=== PATIENT | female | born 1965 | race Caucasian/White ===

== ENCOUNTER → 2021-05-04 14:05 | Outpatient (CLI) | payer OTHER, SELFPAY ==
[2021-05-04 17:37] LABS: Absolute Lymphocyte Count 1.59 X10^3/uL (0.83-4.51); Absolute Neutrophil Count 6.5 X10^3/uL (2.0-7.7); Basophil# 0.09 X10^3/uL; Eosinophil# 0.16 X10^3/uL; Eosinophils% 1.8 % (0-5); Hematocrit 42.6 % (37-47); Hemoglobin 14.2 g/dL (12.0-15.0); Lymphocyte # 1.59 X10^3/ul (0.83-4.51); Lymphocyte % 17.5 % (19-41); Mean Corp Hgb Conc 33.3 g/dL (32-36); Mean Corpuscular Hgb 30.3 pg (27.0-32.0); Mean Corpuscular Volume 90.8 fL (81-99); Mean Platelet Vol. 10.6 fl (6.2-12.0); Monocyte# 0.77 X10^3/uL; Monocyte% 8.5 % (0-10); NRBC Flagged by Analyzer 0 % (0-5); Neutrophil # 6.45 X10^3/uL (2.7-7.7); Neutrophil % 70.8 % (47-70); Platelet Count 293 K/mm3 (150-450); RBC Distribution Width CV 12.4 % (11.6-14.6); RBC Distribution Width SD 41.1 fl (35.1-43.9); Red Blood Count 4.69 M/mm3 (4.2-5.4); White Blood Count 9.1 K/mm3 (4.4-11.0)
[2021-05-04 17:49] LABS: Erythrocyte Sedimentation Rate 70 mm/hr (0-30)
[2021-05-04 17:57] LABS: ALB/GLOB Ratio 0.6 RATIO (0.9-2.4); AST(SGOT) 16 U/L (15-37); Alanine Aminotransfer ALT/SGPT 23 U/L (13-56); Albumin, Serum 3.4 g/dL (3.2-5.0); Alkaline Phosphatase 121 U/L (45-117); Anion Gap 11 (5-15); BUN 22 mg/dL (7-18); BUN/Creat Ratio 21.2 RATIO (10-20); Calcium,Total 9.7 mg/dL (8.5-10.1); Chloride 106 mmol/L (98-107); Creatinine, Serum 1.04 mg/dL (0.55-1.02); EST Glomerular Filtration Rate 59 mL/min (>60); Est Glom Filt Rate - Afr Amer 71 mL/min (>60); Globulin 5.3 g/dL (2.2-4.2); Glucose 104 mg/dL (74-106); Potassium 3.9 mmol/L (3.5-5.1); Protein, Total 8.7 g/dL (6.4-8.2); Rheumatoid Factor < 10.0 IU/mL (<15); Sodium Level 137 mmol/L (136-145)
[2021-05-05 09:19] LABS: Hepatitis B Surface Antibody Reactive; Hepatitis B Surface Antigen Non-Reactive (Nonreactive); Hepatitis C Antibody Non-Reactive (Nonreactive)
[2021-05-07 09:15] LABS: CCP IgG Antibodies 4 units (0-19)
[2021-05-07 09:44] LABS: ANTINUCLEAR ANTIBODIES DIRECT Negative (Negative)
== END ==
PROVIDERS: Referring Provider Internal Medicine Rheumatology; Visit Provider Internal Medicine Rheumatology
DX: M06.4 Inflammatory polyarthropathy (principal); M79.7 Fibromyalgia; Q66.70 Congenital pes cavus, unspecified foot; M47.897 Other spondylosis, lumbosacral region; M51.37 Other intervertebral disc degeneration, lumbosacral region; K58.0 Irritable bowel syndrome with diarrhea; K21.9 Gastro-esophageal reflux disease without esophagitis; F98.8 Other specified behavioral and emotional disorders with onset usually occurring in childhood and adolescence; F32.A Depression, unspecified; J45.909 Unspecified asthma, uncomplicated
CPT/HCPCS: 36415; 80053; 85025; 85652; 86038; 86140; 86200; 86431; 86706; 86803; 87340

== ENCOUNTER → 2022-01-12 | Outpatient (CLI) | payer OTHER, SELFPAY ==
--- NOTE | 2022-01-12 16:55 | MRI_ITS ---
STUDY: MRI LUMBAR SPINE WITHOUT CONTRAST REASON FOR EXAM: Female, 56 years old. ARTHROPATHY , DDD,RADICULOPATHY, SPONDYLOSIS TECHNIQUE: Standardized fat and water weighted pulse sequences were obtained in the sagittal and axial planes. COMPARISON: None FINDINGS: T12-L1: Normal endplates. Normal disc height, hydration and morphology. Normal bilateral facet joints. Normal central canal and bilateral lateral recesses. Normal bilateral intervertebral neural foramina. Normal lumbar lordosis. There is mild to moderate levo scoliosis. Normal conus medullaris that terminates at T12-L1 L1-2: Normal endplates. Normal disc height, hydration and morphology. Normal bilateral facet joints. Normal central canal and bilateral lateral recesses. Normal bilateral intervertebral neural foramina. L2-3: Normal endplates. Normal disc height, hydration and morphology. Normal bilateral facet joints. Normal central canal and bilateral lateral recesses. Normal bilateral intervertebral neural foramina. L3-4: Mild endplate spurring.. Degenerative endplate changes. Narrowed disc space with desiccation of disc and minimal annular bulge with tiny right foraminal disc protrusion... Minor facet arthropathy and thickening of ligamenta flava. Normal central canal and bilateral lateral recesses. Mild right neuroforaminal encroachment.. L4-5: Degenerative endplate changes. Narrowed disc space with desiccation of disc and minor annular bulge. Facet arthropathy and thickening of ligamenta flava more severe on the left normal central canal. Normal bilateral lateral recesses. Mild right neuroforaminal stenosis and moderate to severe left neuroforaminal stenosis. L5-S1: Normal endplates. Normal disc height, hydration and morphology. Normal bilateral facet joints. Normal central canal and bilateral lateral recesses. Normal bilateral intervertebral neural foramina. Normal visualized sacral ala. Normal visualized paraspinous soft tissue structures. MRI/Spine Lumbar (Routine) IMPRESSION: No evidence for acute fracture or other significant bony pathology.. Mild scoliosis and degenerative changes. Spinal stenosis at L3-4 and more severe at L4-5 worse on the left secondary to disc disease and facet arthropathy. Findings as above Electronically Signed: Jamal Walton MD at 20:13 EDT ,
== END | disposition home or self-care (01) ==
LOC: MRI 16:45
PROVIDERS: PCP Nurse Practitioner Primary Care; Visit Provider Nurse Practitioner Family
DX: M46.96 Unspecified inflammatory spondylopathy, lumbar region (principal); M51.37 Other intervertebral disc degeneration, lumbosacral region; M54.17 Radiculopathy, lumbosacral region; M47.817 Spondylosis without myelopathy or radiculopathy, lumbosacral region
CPT/HCPCS: 72148

== ENCOUNTER 2022-08-29 20:13 | Emergency (ER) | payer OTHER, SELFPAY ==
[2022-08-29 20:14] VITALS: BP 136/85; PULSE 124; RESP 19; TEMP 36.4; O2SAT 99
--- NOTE | 2022-08-29 20:26 | CT_ITS ---
INDICATION: chest pain -- post op, r/o PE EXAMINATION: CT CHEST WITH CONTRAST - CTA Chest WO/W Contrast Injection A radiation dose optimization technique was used for this scan. COMPARISON: None provided. FINDINGS: Contrast enhanced serial CTA axial images through the chest with coronal and sagittal reformatted series. Additional dedicated coronal and sagittal MIP reformatted series provided as well. IV Contrast dosage and agent: 100mL Isovue-370 Radiation CTDIvol 13.84 Radiation DLP 471.84 MEDIASTINUM: No acute thoracic aortic abnormality. Distal pulmonary artery branch vessel evaluation is suboptimal secondary to timing of contrast bolus as well as respiratory motion, however, there are no obvious proximal pulmonary artery filling defects. Mediastinum is otherwise unremarkable. LUNG PARENCHYMA: No acute pulmonary parenchymal abnormality. PLEURA: No pleural effusion. No pneumothorax. BONES: Osseous structures are unremarkable for age. UPPER ABDOMEN: Simple fluid attenuating left upper renal pole lesion, only partially image, likely renal cyst. Small hiatal hernia. CT/CTA Chest W/WO Contrast IMPRESSION: Distal pulmonary artery branch vessel evaluation is suboptimal secondary to timing of contrast bolus as well as respiratory motion, however, there is no obvious proximal pulmonary embolus. No acute aortic abnormality. No acute abnormality of the chest identified. Electronically Signed: Kwasi Velazquez MD at 21:45 EDT ,
--- NOTE | 2022-08-29 20:26 | EKG12_ITS ---
Test Reason : DYSRHYTHMIA Blood Pressure : / mmHG Vent. Rate : 110 BPM Atrial Rate : 110 BPM P-R Int : 138 ms QRS Dur : 072 ms QT Int : 296 ms P-R-T Axes : 046 033 022 degrees QTc Int : 400 ms Sinus tachycardia Nonspecific T wave abnormality Abnormal ECG Confirmed by HIPOLITO ESPARZA ([id number]), social media editor ADRIAN OLSEN ([id number]) on 08/31/2022 1:18:49 PM Referred By: SHAAN Confirmed By:HIPOLITO ESPARZA
--- NOTE | 2022-08-29 20:29 | EDS_ITS ---
HPI History of Present Illness Chief Complaint: Chest Pain Informant: patient and spouse/S.O. Narrative Narrative: 3-day postop lumbar decompression by Dr. Martir Dumont at [facility]. She was hospitalized and discharged yesterday. Started having left leg swelling yesterday. Overnight intermittent chest pains denies dyspnea. Denies tobacco history. Denies history of PE or DVT. Denies hypertension, diabetes or hyperlipidemia. Family history. [place] in their 60s. Denies vomiting or diarrhea. She is on hydrocodone and stool softener postop. She did not have radicular pain. Surgery however failed conservative treatment and injections. Denies calf or thigh pain. Prior Similar Symptoms: No CVD Risk Factors: Negative for Hypertension, Diabetes, Hypercholesterolemia, Family History 1' </=55 or Smoking PE Risk Factors: Positive for Recent Travel/Surgery; Negative for Recent Immobilization or Prior DVT or PE [facility] Medical History Back pain with history of spinal surgery GERD (gastroesophageal reflux disease) Kidney stones Sleep apnea Home Medications docusate sodium 100 mg capsule 100 mg PO BID 08/29/22 [History Last Taken Unknown] gabapentin 300 mg capsule 300 mg PO BID 08/29/22 [History Last Taken Unknown] oxycodone 5 mg capsule 5 mg PO Q6H PRN Pain 08/29/22 [History Last Taken Unknown] Allergy/AdvReac Type Severity Reaction Status Date / Time No Known Allergies Allergy Verified 08/29/22 20:16 Surgical History History of appendectomy History of cholecystectomy Social History Smoking Status: Never smoker [facility] ED Constitutional Constitutional ED: Denies chills, fever(s) or sweats Eyes Eyes: Denies change in vision ENT ENT ED: Denies dysphagia or sore throat Cardiovascular Cardiovascular: Reports chest pain; Denies leg edema, palpitations or racing heartbeat Respiratory/Chest Respiratory/Chest: Denies cough, dyspnea or dyspnea on exertion Gastrointestinal Gastrointestinal: Denies abdominal pain, diarrhea, nausea or vomiting Genitourinary Genitourinary ED: Denies dysuria, hematuria or urinary frequency Musculoskeletal Musculoskeletal: Denies back pain, extremity pain or neck pain Integumentary Denies rash or wounds Neurologic Neurologic: Denies headache(s), paresthesias or weakness EXAM Physical Exam Const Vital Signs: 08/29/22 20:14 08/29/22 20:24 08/29/22 20:47 Temperature 97.6 F L Temperature Source Temporal Pulse Rate 124 H Respiratory Rate 19 H Respiratory Pattern Normal Blood Pressure 136/85 H Blood Pressure Mean 102 Pulse Ox 99 96 Oxygen Delivery Method Room Air Room Air 08/29/22 21:33 Temperature Temperature Source Pulse Rate 100 Respiratory Rate 16 Respiratory Pattern Blood Pressure 136/76 H Blood Pressure Mean 96 Pulse Ox 95 Oxygen Delivery Method Room Air Positive well nourished and well developed General Appearance ED: well developed and NAD HEENT Reports dry mucous membranes normocephalic and atraumatic Mouth ED: Yes dry mucous membranes Mouth: dry mucous membranes Eyes PERRL, EOMs intact bilaterally and conjunctivae normal General Eye ED: Yes normal appearance of both eyes Neck no lymphadenopathy and supple General: Negative for tenderness Chest Wall Chest: Negative for tenderness Resp normal respiratory effort and normal air movement Effort and Inspection: symmetric chest movement; Negative for respiratory distress Cardio regular rhythm and no murmurs Rate: tachycardic Peripheral Pulses: pulses 2+ throughout GI normal to inspection, nondistended, normoactive bowel sounds and non-tender Palpation: Negative for guarding or rebound tenderness present Back/Spine no CVA tenderness and no thoracic nor lumbar tenderness Back/Spine Narrative: Back brace noted around her abdomen. Extremity normal to inspection Extremity Narrative: No gross swelling noted, no calf or thigh pain bilaterally. Pulses intact distally. General Extremety ED: Negative for edema or tenderness General Extremity: Negative for edema Neuro oriented x3 and no sensory deficits noted Sensorium / Orientation: awake and alert MDM MDM MDM Narrative Medical decision making narrative: Interventions / MDM: Differential diagnosis: ACS, pulmonary embolism, dehydration, electrolyte abnormalities, DVT Diagnosis considered but do not suspect: N/A My EKG interpretation: Sinus rate of 110, no ST changes isolated T wave version leads III. Nonspecific. Imaging independently reviewed and interpreted by myself: CT angiogram chest: No central PE, no other acute process, as interpreted by radiology. External documents reviewed: N/A Test considered but not ordered:N/A ED course: Patient postop report leg swelling chest pains today. High risk for PE, work-up initiated. EKG sinus tachycardia at 110. DVT studies were negative for both legs. She given fluids and improved heart rate. Troponin less than 3 therefore negative for cardiac etiology per hospital algorithm. CT angiogram chest negative for any central PE used. Symptoms improved on reevaluation. Discussed monitoring symptoms discussed clinical dehydration oral fluids at home. She will follow-up with her PCP with return precautions. All questions were answered. Re-evaluation: stable Disposition discussed with patient/family/significant other: Patient and significant other Case discussed with consulting clinician: N/A Lab Data Labs: Laboratory Results - last 24 hr 08/29/22 08/29/22 08/29/22 20:43 20:43 20:43 WBC 10.7 RBC 4.06 L Hgb 12.1 Hct 36.9 L MCV 90.9 MCH 29.8 MCHC 32.8 RDW Std Deviation 46.7 H RDW Coeff of Jesús 13.9 Plt Count 254 MPV 10.7 Immature Gran % (Auto) 0.400 Neut % (Auto) 65.3 Lymph % (Auto) 24.1 [place] % (Auto) 9.4 Eos % (Auto) 0.4 Baso % (Auto) 0.4 Absolute Neuts (auto) 7.0 Absolute Lymphs (auto) 2.58 Nucleated RBC % 0 PT 13.8 INR 1.1 APTT 30.9 Sodium 137 Potassium 3.9 Chloride 108 H Carbon Dioxide 27.0 Anion Gap 2 L BUN 11 Creatinine 0.64 Est GFR (MDRD) Af Amer 125 Est GFR (MDRD) Non-Af 103 BUN/Creatinine Ratio 17.3 Glucose 119 H Calcium 9.3 Troponin I High Sens < 3 L Radiography Diagnostic Testing: Clinical Impression(s) from Imaging Studies Chest CTA 08/29/22 20:26 IMPRESSION: Distal pulmonary artery branch vessel evaluation is suboptimal secondary to timing of contrast bolus as well as respiratory motion, however, there is no obvious proximal pulmonary embolus. No acute aortic abnormality. No acute abnormality of the chest identified. Electronically Signed: Kwasi Velazquez MD at 21:45 EDT , Venous Duplex 08/29/22 20:38 IMPRESSION: No evidence of bilateral lower extremity DVT. Electronically Signed: Kwasi Velazquez MD at 22:03 EDT , Discharge Plan Triage Chief Complaint: Chest Pain ED Provider: Rickie Romero Dx/Rx/DC Orders Clinical Impression: Chest pain, Left leg swelling, Postop check, Sinus tachycardia, Dehydration Instructions: ED Chest Pain, Uncertain Cause Prescriptions: No Action docusate sodium 100 mg capsule 100 mg PO BID Label Comments: TAKE 1 CAPSULE BY MOUTH TWICE DAILY FOR 30 DAYS NEEDED FOR CONSTIPATION gabapentin 300 mg capsule 300 mg PO BID Label Comments: TAKE 1 CAPSULE BY MOUTH TWICE DAILY FOR 30 DAYS oxycodone 5 mg Capsule 5 mg PO Q6H PRN (Reason: Pain) Primary Care Provider: Saad Michel NP Referrals: Saad Michel [employer], [employer] [Primary Care Provider] - 3-5 Days Activity Restrictions/Additional Instructions: Cardiac work-up negative. DVT studies both legs negative. CT angiogram of your chest negative for any central pulmonary embolism. Follow-up with your doctors. Return if any worsening symptoms. Disposition Disposition: Home, Self Care
--- NOTE | 2022-08-29 20:38 | US_ITS ---
INDICATION: BILAT LEG SWELLING S/P BACK SURGERY EXAMINATION: Ultrasound US Venous Duplex LE Bilat Complete TECHNIQUE: Westfall scale, pulse wave, and color flow Doppler imaging was performed of the extremity venous system. COMPARISON: None. FINDINGS: 7 grayscale ultrasound images of the bilateral lower extremity deep venous structures with multiple cinematic series, demonstrate good compressibility, good flow by color Doppler, no filling defects, and appropriate response to augmentation maneuvers. US/Venous Duplex Imag/Al Extrem IMPRESSION: No evidence of bilateral lower extremity DVT. Electronically Signed: Kwasi Velazquez MD at 22:03 EDT ,
[2022-08-29 20:47] VITALS: O2SAT 96
[2022-08-29 20:53] LABS: Absolute Lymphocyte Count 2.58 X10^3/uL (0.83-4.51); Basophil# 0.04 X10^3/uL; Basophil% 0.4 % (0-1); Eosinophil# 0.04 X10^3/uL; Eosinophils% 0.4 % (0-5); Hematocrit 36.9 % (37-47); Hemoglobin 12.1 g/dL (12.0-15.0); Lymphocyte # 2.58 X10^3/ul (0.83-4.51); Lymphocyte % 24.1 % (19-41); Mean Corp Hgb Conc 32.8 g/dL (32-36); Mean Corpuscular Hgb 29.8 pg (27.0-32.0); Mean Corpuscular Volume 90.9 fL (81-99); Mean Platelet Vol. 10.7 fl (6.2-12.0); Monocyte# 1.01 X10^3/uL; Monocyte% 9.4 % (0-10); NRBC Flagged by Analyzer 0 % (0-5); Neutrophil # 6.99 X10^3/uL (2.7-7.7); Neutrophil % 65.3 % (47-70); Platelet Count 254 K/mm3 (150-450); RBC Distribution Width CV 13.9 % (11.6-14.6); RBC Distribution Width SD 46.7 fl (35.1-43.9); Red Blood Count 4.06 M/mm3 (4.2-5.4); White Blood Count 10.7 K/mm3 (4.4-11.0)
[2022-08-29] MEDS: Aspirin 81 MG TAB.CHEW 324 MG PO (20:55)
[2022-08-29 21:11] LABS: International Normalized Ratio 1.1; Prothrombin Time (Protime)PT. 13.8 SECONDS (11.7-14.9)
[2022-08-29 21:12] LABS: Partial Thromboplast Time 30.9 Seconds (24.1-36.2)
[2022-08-29 21:16] LABS: Anion Gap 2 (5-15); BUN 11 mg/dL (7-18); BUN/Creat Ratio 17.3 RATIO (10-20); Calcium,Total 9.3 mg/dL (8.5-10.1); Chloride 108 mmol/L (98-107); Creatinine, Serum 0.64 mg/dL (0.55-1.02); EST Glomerular Filtration Rate 103 mL/min (>60); Est Glom Filt Rate - Afr Amer 125 mL/min (>60); Glucose 119 mg/dL (74-106); Potassium 3.9 mmol/L (3.5-5.1); Sodium Level 137 mmol/L (136-145); Troponin-I HS (w/2H Reflex) < 3 pg/mL (3.0-54.0)
[2022-08-29] MEDS: 0.9% Normal Saline 1,000 ML 1000 ML IV (21:32)
[2022-08-29 21:33] VITALS: BP 136/76; PULSE 100; RESP 16; O2SAT 95
[2022-08-29 22:47] VITALS: BMI 41.3
[2022-08-29 22:48] VITALS: BP 141/78; PULSE 98; RESP 17; O2SAT 96
[2022-08-29 22:49] VITALS: BP 140/79; PULSE 103; RESP 16; O2SAT 96
[2022-08-29 22:51] LABS: Reflex Troponin-HS? (from REC) Y
[2022-08-29] MEDS: HYDROcodone Bitartrate/Apap 5/325 Tablet PO (23:16)
== END 2022-08-29 23:19 | disposition home or self-care (01) ==
PROVIDERS: Emergency Provider Emergency Medicine; PCP Nurse Practitioner Primary Care; Visit Provider Emergency Medicine
DX: R07.9 Chest pain, unspecified (principal); M79.89 Other specified soft tissue disorders; R00.0 Tachycardia, unspecified; E86.0 Dehydration; G47.30 Sleep apnea, unspecified
CPT/HCPCS: 71275; 80048; 84484; 85025; 85610; 85730; 93005; 93970; 96360; 99284; J7030; Q9967; A4216

== ENCOUNTER → 2024-03-21 | Outpatient (CLI) | payer OTHER, SELFPAY | END | disposition home or self-care (01) | LOC: RAD 12:37 | PROVIDERS: PCP Nurse Practitioner Primary Care; Referring Provider Podiatrist; Visit Provider Podiatrist | DX: L97.223 Non-pressure chronic ulcer of left calf with necrosis of muscle (principal); M79.672 Pain in left foot | CPT/HCPCS: 73590; 73630 ==

== ENCOUNTER 2024-04-09 09:00 | Outpatient (RCR) | payer OTHER, SELFPAY ==
[2024-03-19 09:32] VITALS: BP 155/88; PULSE 82; RESP 18; TEMP 36.8; BMI 33.0
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
--- NOTE | 2024-03-20 13:26 | WC ---
PHOTO 03/19/24 CLAUDETTE POST
--- NOTE | 2024-03-20 13:28 | WC ---
PHOTO 03/19/24 TAN DING
--- NOTE | 2024-03-20 13:30 | WC ---
PHOTO 03/19/24 TAN DIMAS
[2024-04-02 09:26] VITALS: BP 125/86; PULSE 84; RESP 18; TEMP 36.3; BMI 33.0
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
[2024-04-09 09:14] VITALS: BP 120/83; PULSE 80; RESP 18; TEMP 36.2; BMI 33.0
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
== END 2024-04-13 23:59 | disposition home or self-care (01) ==
LOC: WC 09:00
PROVIDERS: PCP Nurse Practitioner Primary Care; Referring Provider Nurse Practitioner Primary Care; Visit Provider Podiatrist
DX: L97.223 Non-pressure chronic ulcer of left calf with necrosis of muscle (principal); R60.0 Localized edema; S81.832S Puncture wound without foreign body, left lower leg, sequela; V99.XXXS Unspecified transport accident, sequela; Z79.899 Other long term (current) drug therapy
CPT/HCPCS: 11042; 11043; 11046; 99213; 99214; G0463

== ENCOUNTER 2024-05-07 09:00 | Outpatient (RCR) | payer OTHER, SELFPAY ==
[2024-04-14 00:38] VITALS: BP 120/83; PULSE 80; RESP 18; TEMP 36.2; BMI 33.0
[2024-04-16 11:26] VITALS: BP 146/75; PULSE 74; RESP 18; TEMP 36.8; BMI 33.0
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
--- NOTE | 2024-04-19 10:51 | WC ---
PHOTO 04/16/24 LEFT LATERAL LE
[2024-04-19 12:20] VITALS: BP 136/79; PULSE 75; RESP 18; TEMP 35.8; BMI 33.0
[2024-04-23 11:37] VITALS: BP 143/84; PULSE 84; RESP 18; TEMP 36.1; BMI 33.0
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
--- NOTE | 2024-04-24 11:56 | WC ---
PHOTO 04/23/24 TAN
--- NOTE | 2024-04-24 12:00 | WC ---
PHOTO 04/23/24 TAN
[2024-04-26 10:35] VITALS: BP 139/86; PULSE 79; RESP 18; TEMP 35.8; BMI 33.0
[2024-04-30 09:27] VITALS: BP 140/85; PULSE 89; RESP 18; TEMP 36.3; BMI 33.0
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
--- NOTE | 2024-04-30 10:28 | VDLE_ITS ---
Reason For Study: Bilateral leg swelling RIGHT LEFT GSV is normal. GSV is normal. CFV is compressible, spontaneous, phasic, CFV is compressible, spontaneous, phasic, competent and demonstrates normal competent, and demonstrates normal augmentation. augmentation. FV is compressible, spontaneous, phasic, FV is compressible, spontaneous, phasic, competent and demonstrates normal competent and demonstrates normal augmentation. augmentation. POP V is compressible, spontaneous, phasic, POP V is compressible, spontaneous, phasic, competent and demonstrates normal competent and demonstrates normal augmentation. augmentation. T/P Trunk is compressible. T/P Trunk is compressible. PTV is compressible. PTV is compressible. RT PerV is compressible. LT PerV is compressible. Procedure This is a venous duplex using B-mode, color flow and spectral Doppler. Exam performed in department. A preliminary report was called and/or faxed to Dr. Burrows @ [facility] and Office. VL/Venous Duplex US - Al Extrem Interpretation Summary Deep veins of the lower extremities are bilaterally patent and compressible seg mentally. There is no evidence of deep vein thrombosis on either side. Valvular competence appears in tact within the proximal deep venous systems bilaterally. The great saphenous veins appear bila terally patent and compressible segmentally. Ordering Physician: Best Burrows Referring Physician: Saad Michel Performed By: Rebekah Soliz RVT
--- NOTE | 2024-05-01 13:46 | WC ---
PHOTO 04/30/24
--- NOTE | 2024-05-01 13:50 | WC ---
PHOTO 04/30/24 L POST
[2024-05-03 10:59] VITALS: BP 136/93; PULSE 85; RESP 18; TEMP 36.6; BMI 33.0
[2024-05-07 10:45] VITALS: BP 132/81; PULSE 84; RESP 16; TEMP 36.3; BMI 33.0
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
== END 2024-05-14 23:59 | disposition home or self-care (01) ==
LOC: WC 09:00
PROVIDERS: PCP Nurse Practitioner Primary Care; Referring Provider Nurse Practitioner Primary Care; Visit Provider Podiatrist
DX: L97.223 Non-pressure chronic ulcer of left calf with necrosis of muscle (principal); I87.2 Venous insufficiency (chronic) (peripheral); S81.832S Puncture wound without foreign body, left lower leg, sequela; V99.XXXS Unspecified transport accident, sequela; Z79.899 Other long term (current) drug therapy
CPT/HCPCS: 11042; 11043; 11045; 11046; 29581; 93970; 97605

== ENCOUNTER 2024-06-11 08:15 | Outpatient (RCR) | payer OTHER, SELFPAY ==
[2024-05-15 00:20] VITALS: BP 120/83; PULSE 80; RESP 18; TEMP 36.2; BMI 33.0
[2024-05-21 08:33] VITALS: BP 146/98; PULSE 87; RESP 16; TEMP 36.3; BMI 33.0
--- NOTE | 2024-05-21 09:21 | PCM.WC.PN ---
History of Present Illness Date of Service: 05/21/24 Progress of Wound: Follow-up left leg wound. Notes improvement. Patient has back pain awaiting visit for that. Denies constitutional symptoms. No other complaints. Objective Data Objective Data Vital Signs: Vital Signs Temp Pulse Resp BP O2 Del Method 97.3 F L 87 16 146/98 H Room Air 05/21/24 08:33 05/21/24 08:33 05/21/24 08:33 05/21/24 08:33 05/21/24 08:33 Oxygen Delivery Method Room Air Weight: 79.379 kg Body Mass Index (BMI) 33.0 Physical Exam Narrative Dorsalis pedis posterior tibial pulses palpable. +1 pitting edema to the left lower extremity with varicosities noted. Light touch protective sensation intact bilateral lower extremity. Full-thickness ulceration to the left lateral leg with a 100% granular base predebridement postdebridement wound demonstrates a full-thickness wound that extends all the way down to the level of subcutaneous tissue. No signs of infection postdebridement. Pre and postdebridement measurements documented nursing notes. Posterior leg wounds on left leg healed. No gross deformity noted of leg. No signs of DVT. 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 ) Arrival Mode Ambulatory,Cane Patient Identification Verified (Name & Yes ) Height and Weight Body Mass Index (BMI) 33.0 BMI Classification Obese Vital Signs Temperature (97.8 F-99.1 F) 97.3 F L Temperature Source Temporal Pulse Rate (60-100) 87 Pulse Location Monitor Respiratory Rate (12-18) 16 Respiratory rate source Observation Oxygen Delivery Method Room Air Blood Pressure (90/60-120/80) 146/98 H Blood Pressure Mean (mm Hg) 114 Source Monitor Position Semi-Fowlers Blood Pressure Location Left Arm History Since Last Visit- (Skip if this is Patient's initial visit) Have you changed medications since your No last visit? Any new allergies or adverse reactions No Had a fall/change in ADL's that may No increase risk of falls Signs or symptoms of abuse and/or No neglect since last visit Have you been in the hospital since your No last visit? Has dressing in place as prescribed Yes Has compression in place as prescribed Yes Has offloadiing in place as prescribed N/A Experienced any changes in pain level or No management Left Footwear Regular Shoe Right Footwear Regular Shoe Pain Scale: 0-10 Numeric Is Patient Pain Free? Yes WC - Nurse 1 - General Ulcer Measurement Start: 05/21/24 08:33 Freq: Status: Active Protocol: Activity Type Activity Date Activity User E-sign Co-sign Detail Recorded Client Recorded Date Recorded By Document 05/21/24 08:33 KW [id number] 05/21/24 08:43 KW 05/21/24 08:33 Wound Center Nurse 1 2. LLE medial -Granulation Amt Large (67-100%) -Granulation Quality Red -Texture (Kelly-wound Skin Appearance) Assessed -Moisture (Kelly-wound Skin Appearance) Assessed -Color (Kelly-wound Skin Appearance) Assessed -Temperature (Kelly-wound Skin No Abnormality Appearance) (Pt Warm) -Tenderness on Palpation (Kelly-wound No Skin Appearance) -Ulcer Cleansing Soap and Water -Anesthetic Used 4% Lidocaine Solution 3. LLE lateral -Granulation Amt Large (67-100%) -Granulation Quality Red -Texture (Kelly-wound Skin Appearance) Assessed -Moisture (Kelly-wound Skin Appearance) Assessed -Color (Kelly-wound Skin Appearance) Assessed -Temperature (Kelly-wound Skin No Abnormality Appearance) (Pt Warm) -Ulcer Cleansing Soap and Water -Anesthetic Used 4% Lidocaine Solution Left Calf (cm) 39.5 Left Ankle (cm) 25 WC - Nurse 2 - General Ulcer CM Notes Start: 05/21/24 08:33 Freq: Status: Active Protocol: Activity Type Activity Date Activity User E-sign Co-sign Detail Recorded Client Recorded Date Recorded By Document 05/21/24 08:50 JF [id number] 05/21/24 08:53 JF 05/21/24 08:50 Wound Center Nurse 2 2. LLE medial -Correct Patient Yes -Correct Side, Site, Position No -Correct Procedure No -Procedure Performed No -Post Debridement (cm) - Length 0 -Post Debridement (cm) - Width 0 -Post Debridement (cm) - Depth 0 -Total Square (Post) (cm) 0 -Area of Debridement (cm) - Length 0 -Area of Debridement (cm) - Width 0 -Total Square (Area) (cm) 0 -Wound/Ulcer Outcome Healed- Epithelialized 3. LLE lateral -Time 08:50 -Correct Patient Yes -Correct Side, Site, Position Yes -Correct Procedure Yes -Procedure Performed Yes -Type of Procedure Debridement -Clinical Debridement Subcutaneous -Tissue Removed Subcutaneous -Post Debridement (cm) - Length 5.0 -Post Debridement (cm) - Width 1.5 -Post Debridement (cm) - Depth 0.1 -Total Square (Post) (cm) 7.50 -Area of Debridement (cm) - Length 5.0 -Area of Debridement (cm) - Width 1.5 -Total Square (Area) (cm) 7.50 -Tunneling No -Undermining/Tunneling No -Circular Undermining No -Wound/Ulcer Outcome Not Healed -Ulcer Cleansing Rinsed/ Irrigated with Saline -Foul Odor after Cleansing No -Bioengineered Tissue Yes -Type of Bioengineered Tissue Epifix Mesh -Expiration Date 11/12/28 -Product Lot Number [id number] -Percent Used 100 -Lot number of Saline Used [id number] -Bleeding Controlled with Pressure -Treatment Response Procedure Tolerated Well -Offloading No -Debridement - Subq, 1st 20sq cm No -Apply Skin Sub - 1st 25 sq cm - Legs 1 -Epifix Mesh (per sq cm) 11 Pain Scale: 0-10 Numeric Is Patient Pain Free? Yes WC - Nurse 3 - General Ulcer D/C NN Start: 05/21/24 08:33 Freq: Status: Active Protocol: Activity Type Activity Date Activity User E-sign Co-sign Detail Recorded Client Recorded Date Recorded By Document 05/21/24 08:54 KW [id number] 05/21/24 08:54 KW 05/21/24 08:54 Wound Care Center Nurse 3 3. LLE lateral -Primary Dressing Applied Optilok 6.5x10 -Primary Dressing Covered/Secured with Dry Gauze & Roll Gauze, Secured with Tape -Optilok 6.5x10 1 Left -Multi-Layered Wrap Application Multi-Layer Comp - Left ($) Pain Scale: 0-10 Numeric Is Patient Pain Free? 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 Patient's only issue for possible delayed healing is some venous insufficiency. Patient has traumatic ulcerations to left lower extremity. Left leg wound excisionally debrided The left lateral leg wound was excisionally debrided down to including level of muscle while the anterior and posterior leg wounds were debrided excisionally down to including level of subcutaneous tissue, all nonviable tissue was removed using combination of pickups #15 blade 7 mm dermal curette as well as 5 mm dermal curette. Injectable anesthesia 2% 10 cc using a local infiltration block was performed using aseptic technique. Hemostasis obtained with light compression. Patient tolerated procedure well. A 4 x 4.5 mm EpiFix graft, 11 billing units was applied to the left leg wound. This was stabilized with overlying Adaptic and Steri-Strips. Entire graft used, no waste. Overlying dry sterile dressing and Tubigrip applied to left lower extremity Previous duplex was negative for DVT Follow-up on a weekly basis. (2) Venous insufficiency (chronic) (peripheral): CODE(S): I87.2 - Venous insufficiency (chronic) (peripheral) (3) Non-pressure chronic ulcer of left calf with fat layer exposed: CODE(S): L97.222 - Non-pressure chronic ulcer of left calf with fat layer exposed
[2024-05-28 08:31] VITALS: BP 135/78; PULSE 75; RESP 18; TEMP 36.1; BMI 33.0
--- NOTE | 2024-05-28 09:30 | PN.PCM_ITS ---
History of Present Illness Date of Service: 05/28/24 Progress of Wound: Follow-up left leg wound. Notes improvement. Patient has back pain awaiting visit for that. Denies constitutional symptoms. No other complaints. Objective Data Objective Data Vital Signs: Vital Signs Temp Pulse Resp BP O2 Del Method 97 F L 75 18 135/78 H Room Air 05/28/24 08:31 05/28/24 08:31 05/28/24 08:31 05/28/24 08:31 05/21/24 08:33 Oxygen Delivery Method Room Air Weight: 79.379 kg Body Mass Index (BMI) 33.0 Physical Exam Narrative Dorsalis pedis posterior tibial pulses palpable. +1 pitting edema to the left lower extremity with varicosities noted. Light touch protective sensation intact bilateral lower extremity. Full-thickness ulceration to the left lateral leg with a 100% granular base predebridement postdebridement wound demonstrates a full-thickness wound that extends all the way down to the level of subcutaneous tissue. No signs of infection postdebridement. Pre and postdebridement measurements documented nursing notes. Posterior leg wounds on left leg healed. No gross deformity noted of leg. No signs of DVT. 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 (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/NEWS OPERATIONS MANAGER ) ) Arrival Mode Ambulatory,Cane Ambulatory,Cane Transfer Assistance None Patient Identification Verified (Name & Yes Yes ) Patient Requires Transmission-Based No Precautions Height and Weight Body Mass Index (BMI) 33.0 33.0 BMI Classification Obese Obese Vital Signs Temperature (97.8 F-99.1 F) 97.3 F L 97 F L Temperature Source Temporal Temporal Pulse Rate (60-100) 87 75 Pulse Location Monitor Monitor Respiratory Rate (12-18) 16 18 Respiratory rate source Observation Observation Oxygen Delivery Method Room Air Blood Pressure (90/60-120/80) 146/98 H 135/78 H Blood Pressure Mean (mm Hg) 114 97 Source Monitor Monitor Position Semi-Fowlers Semi-Fowlers Blood Pressure Location Left Arm Left Arm History Since Last Visit- (Skip if this is Patient's initial visit) Have you changed medications since your No No last visit? Any new allergies or adverse reactions No No Had a fall/change in ADL's that may No No increase risk of falls Signs or symptoms of abuse and/or No No neglect since last visit Have you been in the hospital since your No No last visit? Has dressing in place as prescribed Yes Yes Has compression in place as prescribed Yes Yes Has offloadiing in place as prescribed N/A No Experienced any changes in pain level or No No management Left Footwear Regular Shoe Right Footwear Regular Shoe Pain Scale: 0-10 Numeric Is Patient Pain Free? Yes Yes WC - Nurse 1 - General Ulcer Measurement Start: 05/21/24 08:33 Freq: Status: Active Protocol: Activity Type Activity Date Activity User E-sign Co-sign Detail Recorded Client Recorded Date Recorded By Document 05/21/24 08:33 KW [id number] 05/21/24 08:43 KW Document 05/28/24 08:31 RB [id number] 05/28/24 08:35 RB 05/21/24 05/28/24 08:33 08:31 Wound Center Nurse 1 2. LLE medial -Granulation Amt Large (67-100%) -Granulation Quality Red -Texture (Kelly-wound Skin Appearance) Assessed -Moisture (Kelly-wound Skin Appearance) Assessed -Color (Kelly-wound Skin Appearance) Assessed -Temperature (Kelly-wound Skin No Abnormality Appearance) (Pt Warm) -Tenderness on Palpation (Kelly-wound No Skin Appearance) -Ulcer Cleansing Soap and Water -Anesthetic Used 4% Lidocaine Solution 3. LLE lateral -Combined with other wound No -Current Size (cm) - Length 6 -Current Size (cm) - Width 1.5 -Current Size (cm) - Depth 0.1 -Total Square Cm 9.0 -Photo Taken Yes -Tunneling No -Undermining/Tunneling No -Circular Undermining No -Exudate Amt Medium -Exudate Type Serosanguineous -Wound Margin Distinct, Outline Attached -Granulation Amt Large (67-100%) Medium (34-66%) -Granulation Quality Red [place] -Slough/Fibrin Yes -Necrosis Amt Medium (34-66%) -Necrotic Tissue Type Adherent Slough -Structure Exposed N/A -Texture (Kelly-wound Skin Appearance) Assessed Assessed, Scarring -Moisture (Kelly-wound Skin Appearance) Assessed Assessed -Color (Kelly-wound Skin Appearance) Assessed Assessed -Temperature (Kelly-wound Skin No Abnormality No Abnormality Appearance) (Pt Warm) (Pt Warm) -Tenderness on Palpation (Kelly-wound No Skin Appearance) -Ulcer Cleansing Soap and Water Wound Cleanser -Foul Odor after Cleansing No -Anesthetic Used 4% Lidocaine 5% Lidocaine Solution Gel Lower Limb Edema Present Yes Left Calf (cm) 39.5 37 Left Ankle (cm) 25 23 WC - Nurse 2 - General Ulcer CM Notes Start: 05/21/24 08:33 Freq: Status: Active Protocol: Activity Type Activity Date Activity User E-sign Co-sign Detail Recorded Client Recorded Date Recorded By Document 05/21/24 08:50 [id number] 05/21/24 08:53 Document 05/28/24 08:50 [id number] 05/28/24 08:51 05/21/24 05/28/24 08:50 08:50 Wound Center Nurse 2 2. LLE medial -Correct Patient Yes -Correct Side, Site, Position No -Correct Procedure No -Procedure Performed No -Post Debridement (cm) - Length 0 -Post Debridement (cm) - Width 0 -Post Debridement (cm) - Depth 0 -Total Square (Post) (cm) 0 -Area of Debridement (cm) - Length 0 -Area of Debridement (cm) - Width 0 -Total Square (Area) (cm) 0 -Wound/Ulcer Outcome Healed- Epithelialized 3. LLE lateral -Time 08:50 08:50 -Correct Patient Yes Yes -Correct Side, Site, Position Yes Yes -Correct Procedure Yes Yes -Procedure Performed Yes Yes -Type of Procedure Debridement Debridement -Clinical Debridement Subcutaneous Subcutaneous -Tissue Removed Subcutaneous Subcutaneous -Post Debridement (cm) - Length 5.0 5.0 -Post Debridement (cm) - Width 1.5 1.2 -Post Debridement (cm) - Depth 0.1 0.1 -Total Square (Post) (cm) 7.50 6.00 -Area of Debridement (cm) - Length 5.0 5.0 -Area of Debridement (cm) - Width 1.5 1.2 -Total Square (Area) (cm) 7.50 6.00 -Tunneling No No -Undermining/Tunneling No No -Circular Undermining No No -Wound/Ulcer Outcome Not Healed Not Healed -Ulcer Cleansing Rinsed/ Rinsed/ Irrigated with Irrigated with Saline Saline -Foul Odor after Cleansing No No -Bioengineered Tissue Yes Yes -Type of Bioengineered Tissue Epifix Mesh Epifix Mesh -Expiration Date 11/12/28 11/12/28 -Product Lot Number [id number] -Percent Used 100 100 -Lot number of Saline Used [id number] -Bleeding Controlled with Pressure Pressure -Treatment Response Procedure Procedure Tolerated Well Tolerated Well -Offloading No No -Debridement - Subq, 1st 20sq cm No No -Apply Skin Sub - 1st 25 sq cm - Legs 1 1 -Epifix Mesh (per sq cm) 11 11 Pain Scale: 0-10 Numeric Is Patient Pain Free? Yes Yes - Nurse 3 - General Ulcer D/C NN Start: 05/21/24 08:33 Freq: Status: Active Protocol: Activity Type Activity Date Activity User E-sign Co-sign Detail Recorded Client Recorded Date Recorded By Document 05/21/24 08:54 [id number] 05/21/24 08:54 KW Document 05/28/24 09:02 JF 0000 05/28/24 09:04 JF 05/21/24 05/28/24 08:54 09:02 Wound Care Center Nurse 3 3. LLE lateral -Ulcer Cleansing Rinsed/ Irrigated with Saline -Primary Dressing Applied Optilok 6.5x10 -Primary Dressing Applied Optilok 6.5x10 -Primary Dressing Covered/Secured with Dry Gauze & Dry Gauze & Roll Gauze, Roll Gauze, Secured with Secured with Tape Tape -Optilok 6.5x10 1 1 Left -Multi-Layered Wrap Application Multi-Layer Multi-Layer Comp - Left ($) Comp - Left ($) Pain Scale: 0-10 Numeric Is Patient Pain Free? 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 Patient's only issue for possible delayed healing is some venous insufficiency. Patient has traumatic ulcerations to left lower extremity. Left leg wound excisionally debrided The left lateral leg wound was excisionally debrided down to including level of muscle while the anterior and posterior leg wounds were debrided excisionally down to including level of subcutaneous tissue, all nonviable tissue was removed using combination of pickups #15 blade 7 mm dermal curette as well as 5 mm dermal curette. Injectable anesthesia 2% 10 cc using a local infiltration block was performed using aseptic technique. Hemostasis obtained with light compression. Patient tolerated procedure well. A 4 x 4.5 mm EpiFix graft, 11 billing units was applied to the left leg wound. This was stabilized with overlying Adaptic and Steri-Strips. Entire graft used, no waste. Overlying dry sterile dressing and Tubigrip applied to left lower extremity Previous duplex was negative for DVT Follow-up on a weekly basis. (2) Venous insufficiency (chronic) (peripheral): CODE(S): I87.2 - Venous insufficiency (chronic) (peripheral) (3) Non-pressure chronic ulcer of left calf with fat layer exposed: CODE(S): L97.222 - Non-pressure chronic ulcer of left calf with fat layer exposed
[2024-06-04 11:04] VITALS: BP 136/87; PULSE 83; RESP 18; TEMP 36.5; BMI 33.0
--- NOTE | 2024-06-04 11:29 | PN.PCM_ITS ---
History of Present Illness Date of Service: 06/04/24 Progress of Wound: Follow-up left leg wound. Notes improvement. Patient has back pain awaiting visit for that. Denies constitutional symptoms. No other complaints. Objective Data Objective Data Vital Signs: Vital Signs Temp Pulse Resp BP O2 Del Method 97.7 F L 83 18 136/87 H Room Air 06/04/24 11:04 06/04/24 11:04 06/04/24 11:04 06/04/24 11:04 05/21/24 08:33 Oxygen Delivery Method Room Air Weight: 79.379 kg Body Mass Index (BMI) 33.0 Physical Exam Narrative Dorsalis pedis posterior tibial pulses palpable. +1 pitting edema to the left lower extremity with varicosities noted. Light touch protective sensation intact bilateral lower extremity. Full-thickness ulceration to the left lateral leg with a 100% granular base predebridement postdebridement wound demonstrates a full-thickness wound that extends all the way down to the level of subcutaneous tissue. No signs of infection postdebridement. Pre and postdebridement measurements documented nursing notes. Posterior leg wounds on left leg healed. No gross deformity noted of leg. No signs of DVT. Const alert and oriented x3 Debridement Note Debridement Note Post-Debridement Measurements and Additional Note: Post-Debridement Measurements/Treatment - Nurse 1 - General Ulcer Assessment Start: 05/21/24 08:33 Freq: Status: Active Protocol: SIENNA.GONZALES Activity Type Activity Date Activity User E-sign Co-sign Detail Recorded Client Recorded Date Recorded By Document 05/21/24 08:33 KW [id number] 05/21/24 08:43 KW Document 05/28/24 08:31 RB [id number] 05/28/24 08:35 RB Document 06/04/24 11:04 RB [id number] 06/04/24 11:15 RB 05/21/24 05/28/24 06/04/24 08:33 08:31 11:04 - Today's Visit Information Type of service Follow-up Visit Follow-up Visit Follow-up Visit (Physician/MEDICAL OFFICE SECRETARY (Physician/MEDICAL OFFICE SECRETARY (Physician/MEDICAL OFFICE SECRETARY ) ) ) Arrival Mode Ambulatory,Cane Ambulatory,Cane Ambulatory Transfer Assistance None None Patient Identification Verified (Name & Yes Yes Yes ) Patient Requires Transmission-Based No No Precautions Height and Weight Body Mass Index (BMI) 33.0 33.0 33.0 BMI Classification Obese Obese Obese Vital Signs Temperature (97.8 F-99.1 F) 97.3 F L 97 F L 97.7 F L Temperature Source Temporal Temporal Temporal Pulse Rate (60-100) 87 75 83 Pulse Location Monitor Monitor Monitor Respiratory Rate (12-18) 16 18 18 Respiratory rate source Observation Observation Observation Oxygen Delivery Method Room Air Blood Pressure (90/60-120/80) 146/98 H 135/78 H 136/87 H Blood Pressure Mean (mm Hg) 114 97 103 Source Monitor Monitor Monitor Position Semi-Fowlers Semi-Fowlers Semi-Fowlers Blood Pressure Location Left Arm Left Arm Left Arm History Since Last Visit- (Skip if this is Patient's initial visit) Have you changed medications since your No No No last visit? Any new allergies or adverse reactions No No No Had a fall/change in ADL's that may No No No increase risk of falls Signs or symptoms of abuse and/or No No No neglect since last visit Have you been in the hospital since your No No No last visit? Has dressing in place as prescribed Yes Yes Yes Has compression in place as prescribed Yes Yes Yes Has offloadiing in place as prescribed N/A No N/A Experienced any changes in pain level or No No No management Left Footwear Regular Shoe Regular Shoe Right Footwear Regular Shoe Regular Shoe Pain Scale: 0-10 Numeric Is Patient Pain Free? Yes Yes No back -Description Aching -Intensity 10 -Duration (hours) Acute -Pain Behavior Guarding -Pain Aggravating Factors Exercise/ Activity -Alleviating Factors/Interventions Medication -Effectiveness of Alleviating Factor/ Moderately Intervention effective WC - Nurse 1 - General Ulcer Measurement Start: 05/21/24 08:33 Freq: Status: Active Protocol: Activity Type Activity Date Activity User E-sign Co-sign Detail Recorded Client Recorded Date Recorded By Document 05/21/24 08:33 KW [id number] 05/21/24 08:43 KW Document 05/28/24 08:31 RB [id number] 05/28/24 08:35 RB Document 06/04/24 11:04 RB [id number] 06/04/24 11:15 RB 05/21/24 05/28/24 06/04/24 08:33 08:31 11:04 Wound Center Nurse 1 2. LLE medial -Granulation Amt Large (67-100%) -Granulation Quality Red -Texture (Kelly-wound Skin Appearance) Assessed -Moisture (Kelly-wound Skin Appearance) Assessed -Color (Kelly-wound Skin Appearance) Assessed -Temperature (Kelly-wound Skin No Abnormality Appearance) (Pt Warm) -Tenderness on Palpation (Kelly-wound No Skin Appearance) -Ulcer Cleansing Soap and Water -Anesthetic Used 4% Lidocaine Solution 3. LLE lateral -Combined with other wound No No -Current Size (cm) - Length 6 3.5 -Current Size (cm) - Width 1.5 1.8 -Current Size (cm) - Depth 0.1 0.1 -Total Square Cm 9.0 6.30 -Photo Taken Yes Yes -Tunneling No No -Undermining/Tunneling No No -Circular Undermining No No -Exudate Amt Medium Medium -Exudate Type Serosanguineous Serosanguineous -Wound Margin Distinct, Distinct, Outline Outline Attached Attached -Granulation Amt Large (67-100%) Medium (34-66%) Medium (34-66%) -Granulation Quality Red [place] -Slough/Fibrin Yes Yes -Necrosis Amt Medium (34-66%) Medium (34-66%) -Necrotic Tissue Type Adherent Slough Adherent Slough -Structure Exposed N/A N/A -Texture (Kelly-wound Skin Appearance) Assessed Assessed, Scarring Scarring -Moisture (Kelly-wound Skin Appearance) Assessed Assessed Assessed -Color (Kelly-wound Skin Appearance) Assessed Assessed Assessed -Temperature (Kelly-wound Skin No Abnormality No Abnormality No Abnormality Appearance) (Pt Warm) (Pt Warm) (Pt Warm) -Tenderness on Palpation (Kelly-wound No No Skin Appearance) -Ulcer Cleansing Soap and Water Wound Cleanser Wound Cleanser -Foul Odor after Cleansing No No -Anesthetic Used 4% Lidocaine 5% Lidocaine 5% Lidocaine Solution Gel Gel Lower Limb Edema Present Yes Yes Left Calf (cm) 39.5 37 37.2 Left Ankle (cm) 25 23 23.3 WC - Nurse 2 - General Ulcer CM Notes Start: 05/21/24 08:33 Freq: Status: Active Protocol: Activity Type Activity Date Activity User E-sign Co-sign Detail Recorded Client Recorded Date Recorded By Document 05/21/24 08:50 ISHAN [id number] 05/21/24 08:53 Document 05/28/24 08:50 [id number] 05/28/24 08:51 JF Document 06/04/24 11:23 [id number] 06/04/24 11:25 JF 05/21/24 05/28/24 06/04/24 08:50 08:50 11:23 Wound Center Nurse 2 2. LLE medial -Correct Patient Yes -Correct Side, Site, Position No -Correct Procedure No -Procedure Performed No -Post Debridement (cm) - Length 0 -Post Debridement (cm) - Width 0 -Post Debridement (cm) - Depth 0 -Total Square (Post) (cm) 0 -Area of Debridement (cm) - Length 0 -Area of Debridement (cm) - Width 0 -Total Square (Area) (cm) 0 -Wound/Ulcer Outcome Healed- Epithelialized 3. LLE lateral -Time 08:50 08:50 11:24 -Correct Patient Yes Yes Yes -Correct Side, Site, Position Yes Yes Yes -Correct Procedure Yes Yes Yes -Procedure Performed Yes Yes Yes -Type of Procedure Debridement Debridement Debridement -Clinical Debridement Subcutaneous Subcutaneous Subcutaneous -Tissue Removed Subcutaneous Subcutaneous -Post Debridement (cm) - Length 5.0 5.0 4 -Post Debridement (cm) - Width 1.5 1.2 1 -Post Debridement (cm) - Depth 0.1 0.1 0.1 -Total Square (Post) (cm) 7.50 6.00 4 -Area of Debridement (cm) - Length 5.0 5.0 4 -Area of Debridement (cm) - Width 1.5 1.2 1 -Total Square (Area) (cm) 7.50 6.00 4 -Tunneling No No No -Undermining/Tunneling No No No -Circular Undermining No No No -Wound/Ulcer Outcome Not Healed Not Healed Not Healed -Ulcer Cleansing Rinsed/ Rinsed/ Rinsed/ Irrigated with Irrigated with Irrigated with Saline Saline Saline -Foul Odor after Cleansing No No No -Bioengineered Tissue Yes Yes Yes -Type of Bioengineered Tissue Epifix Mesh Epifix Mesh Epifix -Expiration Date 11/12/28 11/12/28 12/13/28 -Product Lot Number [id number] -Percent Used 100 100 100 -Lot number of Saline Used [id number] -Bleeding Controlled with Pressure Pressure Pressure -Treatment Response Procedure Procedure Procedure Tolerated Well Tolerated Well Tolerated Well -Offloading No No No -Debridement - Subq, 1st 20sq cm No No No -Apply Skin Sub - 1st 25 sq cm - Legs 1 1 1 -Epifix (per sq cm) 4 -Epifix Mesh (per sq cm) 11 11 Pain Scale: 0-10 Numeric Is Patient Pain Free? Yes Yes Yes - Nurse 3 - General Ulcer D/C NN Start: 05/21/24 08:33 Freq: Status: Active Protocol: Activity Type Activity Date Activity User E-sign Co-sign Detail Recorded Client Recorded Date Recorded By Document 05/21/24 08:54 KW [id number] 05/21/24 08:54 KW Document 05/28/24 09:02 JF 0000 05/28/24 09:04 JF 05/21/24 05/28/24 08:54 09:02 Wound Care Center Nurse 3 3. LLE lateral -Ulcer Cleansing Rinsed/ Irrigated with Saline -Primary Dressing Applied Optilok 6.5x10 -Primary Dressing Applied Optilok 6.5x10 -Primary Dressing Covered/Secured with Dry Gauze & Dry Gauze & Roll Gauze, Roll Gauze, Secured with Secured with Tape Tape -Optilok 6.5x10 1 1 Left -Multi-Layered Wrap Application Multi-Layer Multi-Layer Comp - Left ($) Comp - Left ($) Pain Scale: 0-10 Numeric Is Patient Pain Free? 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 Patient's only issue for possible delayed healing is some venous insufficiency. Patient has traumatic ulcerations to left lower extremity. Left leg wound excisionally debrided The left lateral leg wound was excisionally debrided down to including level of muscle while the anterior and posterior leg wounds were debrided excisionally down to including level of subcutaneous tissue, all nonviable tissue was removed using combination of pickups #15 blade 7 mm dermal curette as well as 5 mm dermal curette. Injectable anesthesia 2% 10 cc using a local infiltration block was performed using aseptic technique. Hemostasis obtained with light compression. Patient tolerated procedure well. A 2x2 cm EpiFix graft was applied to the left leg wound. This was stabilized with overlying Adaptic and Steri-Strips. Entire graft used, no waste. Overlying dry sterile dressing and Tubigrip applied to left lower extremity Previous duplex was negative for DVT Follow-up on a weekly basis. (2) Venous insufficiency (chronic) (peripheral): CODE(S): I87.2 - Venous insufficiency (chronic) (peripheral) (3) Non-pressure chronic ulcer of left calf with fat layer exposed: CODE(S): L97.222 - Non-pressure chronic ulcer of left calf with fat layer exposed
--- NOTE | 2024-06-06 09:46 | WC ---
PHOTO 06/04/24 LEFT LATERAL LEG
[2024-06-11 08:25] VITALS: BP 132/74; PULSE 94; RESP 16; TEMP 36.2; BMI 33.0
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
--- NOTE | 2024-06-12 08:55 | WC ---
PHOTO LEFT LATERAL LEG 06/11/24
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
== END 2024-06-14 23:59 | disposition home or self-care (01) ==
LOC: WC 08:15
PROVIDERS: PCP Nurse Practitioner Primary Care; Referring Provider Nurse Practitioner Primary Care; Visit Provider Podiatrist
DX: L97.223 Non-pressure chronic ulcer of left calf with necrosis of muscle (principal); S81.802S Unspecified open wound, left lower leg, sequela; V29.99XS Rider (driver) (passenger) of other motorcycle injured in unspecified traffic accident, sequela; I87.2 Venous insufficiency (chronic) (peripheral); R60.0 Localized edema; Z79.899 Other long term (current) drug therapy
CPT/HCPCS: 15271; 29581; Q4186

== ENCOUNTER 2024-07-02 08:15 | Outpatient (RCR) | payer OTHER, SELFPAY ==
[2024-06-15 01:52] VITALS: BP 132/74; PULSE 94; RESP 16; TEMP 36.2; BMI 33.0
[2024-06-18 08:39] VITALS: BP 125/87; PULSE 77; RESP 18; TEMP 37; BMI 33.0
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
--- NOTE | 2024-06-19 12:09 | WC ---
PHOTO 06/18/24 LEFT LATERAL LEG
[2024-06-25 08:53] VITALS: BP 136/81; PULSE 81; RESP 16; TEMP 36.6; BMI 33.0
--- NOTE | 2024-06-26 15:11 | NURSING ---
PHOTO 06/25/24 TAN DIMAS
[2024-07-02 10:10] VITALS: BP 151/89; PULSE 89; RESP 18; TEMP 36.6; BMI 33.0
--- NOTE | 2024-07-03 08:09 | NURSING ---
PHOTO 07/02/24 TAN
== END 2024-07-12 23:59 | disposition home or self-care (01) ==
LOC: WC 08:15
PROVIDERS: PCP Nurse Practitioner Primary Care; Referring Provider Nurse Practitioner Primary Care; Visit Provider Podiatrist
DX: L97.222 Non-pressure chronic ulcer of left calf with fat layer exposed (principal); S82.92XS Unspecified fracture of left lower leg, sequela; V99.XXXS Unspecified transport accident, sequela; I87.2 Venous insufficiency (chronic) (peripheral); R60.0 Localized edema; Z79.899 Other long term (current) drug therapy
CPT/HCPCS: 15271; 29581; 97597; 99213; Q4186; G0463

== ENCOUNTER 2024-07-16 08:16 | Outpatient (RCR) | payer OTHER, SELFPAY ==
[2024-07-13 01:11] VITALS: BP 151/89; PULSE 89; RESP 18; TEMP 36.6; BMI 33.0
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
[2024-07-16 08:47] VITALS: BP 130/83; PULSE 90; RESP 16; TEMP 36.6; BMI 33.0
--- NOTE | 2024-07-17 13:49 | WC ---
PHOTO 07/16/24 TAN
== END 2024-08-12 16:16 | disposition home or self-care (01) ==
LOC: WC 08:16
PROVIDERS: PCP Nurse Practitioner Primary Care; Referring Provider Nurse Practitioner Primary Care; Visit Provider Podiatrist
DX: Z09 Encounter for follow-up examination after completed treatment for conditions other than malignant neoplasm (principal); M54.9 Dorsalgia, unspecified; I87.2 Venous insufficiency (chronic) (peripheral); R60.0 Localized edema
CPT/HCPCS: 99212; 99213; G0463